=== PATIENT | female | born 1990 | race African-American/Black ===

== ENCOUNTER 2016-06-04 07:27 | Emergency (ER) | payer OTHER ==
[2016-06-04] MEDS ORDERED: ACETAMINOPHEN 325 MG TAB As Ordered ONE (08:12)
[2016-06-04] MEDS ORDERED: ONDANSETRON 4 MG ORAL DISINTEGRATING TAB (S0181) As Ordered ONE (08:12)
[2016-06-04 08:41] LABS: CONTROL LINE MONO INT CTR LINE PRESENT
--- NOTE | 2016-06-04 09:12 | EDDOCDS ---
Nurse's Notes [facility] Name: Aretha Rosas Age: 26 yrs Sex: Female : 1990 Arrival Date: 06/04/2016 Time: 07:27 Bed I3 / M3 Private MD: Diagnosis: Influenza due to identified novel influenza A virus with gastrointestinal manifestations Presentation: 06/04 07:33 Presenting complaint: Patient states: Vomiting, chills, sore throat for 3-4 days ck1 Patient reports she is on Amoxicillin for a "throat infection" but is unable to tolerate. States "I keep throwing it up". Adult Sepsis Screening: The patient does not have new or worsening altered mentation. Patient's respiratory rate is less than 22. Systolic blood pressure is greater than 100. Patient has a qSOFA score of 0- Negative Sepsis Screen. Suicide/Homicide risk assessment- the patient denies having any suicidal and/or homicidal ideations and does not present with any other emotional, behavioral or mental health complaints. Status: The patient is a dependent. Transition of care: patient was not received from another setting of care. 07:33 Acuity: ERICA Level 4 ck1 07:33 Method Of Arrival: Walkin/Carried/Asstd ck1 Triage Assessment: 07:38 General: Appears in no apparent distress, comfortable, Behavior is appropriate for age, ck1 cooperative. Pain: Location: throat Pain currently is 10 out of 10 on a pain scale. HIV screening NA for this visit Offered previously. Respiratory: Respiratory effort is even, unlabored, Respiratory pattern is regular, symmetrical. Derm: Skin is pink, warm & dry. 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 Amoxicillin Unknown Oral every 12 hours 2. Advil Oral PRN (Last dose: 06/03/2016 23:00) - PMHx: Asthma; - PSHx: none; - Social history: Smoking status: Patient uses tobacco products, heavy tobacco smoker. No barriers to communication noted, The patient speaks fluent Palestinian, Speaks appropriately for age. - Family history: Not pertinent. - : The pt / caregiver states he / she is not on anticoagulants. Home medication list is obtained from the patient. - Exposure Risk Screening:: None identified. Screenin:24 Screening information is obtained from the patient. Primary language is Palestinian. Fall dls risk: No risks identified. Assistance ADL's: requires no assistance with activities of daily living. Abuse/DV Screen: The patient / caregiver reports he/she is: not in a situation that causes fear, pain or injury. Nutritional screening: No deficits noted. Advance Directives: Currently, there is no health care proxy. There is no active DNR order. There is no living will. There is no Power of Merchandise Director. Advance directive information has not previously been placed in an [facility] medical record. home support is adequate. Assessment: 08:24 General: Appears slender, uncomfortable, Behavior is cooperative. Awake, alert, dls oriented. Skin warm and dry. Moves all extremities. Bilateral breath sounds clear. Respirations unlabored. Abdomen soft, non-tender. No apparent distress. The patient / caregiver is instructed regarding the plan of care and ED course. Vital Signs: 07:34 BP 128 / 82; Pulse 139; Resp 18; Temp 101.8(O); Pulse Ox 98% on R/A; Weight 69.85 kg ck1 (R); Height 5 ft. 2 in. (157.48 cm) (R); Pain 10/10; 09:08 BP 115 / 76; Pulse 122; Resp 20; Temp 101.7(O); Pulse Ox 97% on R/A; Pain 5/10; jml1 07:34 Body Mass Index 28.17 (69.85 kg, 157.48 cm) ck1 Vitals: 07:34 Log In Time: June 04, 2016 at 07:24. ck1 08:23 Strep Screen is obtained and tested: Negative, a GATSNEG culture is ordered in [facility] dls and sent. ED Course: 07:28 Patient visited by Kaila Puckett. mm15 07:28 Patient moved to Waiting mm15 07:34 Triage Initiated ck1 07:38 Patient moved to I3 / M3 ck1 07:55 Jeremias Ann PA-C is PHCP. cc10 07:55 Linh Layton MD is Attending Physician. cc10 07:59 Patient visited by Jeremias Ann PA-C. cc10 07:59 Patient visited by Jeremias Ann PA-C. cc10 08:14 Monoscreen Sent. jml1 08:16 Patient name changed from Tacara\\S\\\\S\\Ralph\\S\\ to Tacara\\S\\Meshawn\\S\\Ralph. EDMS 08:19 [facility] Payment Agreement was scanned into [employer] and attached to record. gb 08:22 -Influenza A&B Rapid Antigen - Nose Sent. dls 08:24 Accompanied by Significant Other, Patient has correct armband on for positive dls identification. Bed in low position. Call light in reach. 09:08 Patient visited by David Pedro. jml1 09:11 No IV's were initiated during this patient's visit. No procedures done that require dls assistance. Administered Medications: 08:22 Drug: Ondansetron ODT 4 mg [ondansetron 4 mg disintegrating tablet (1 tabs)] Route: PO; dls 09:09 Follow up: Response: Nausea is decreased dls 08:34 Drug: Acetaminophen 975 mg [acetaminophen 325 mg tablet (3 tabs)] Route: PO; dls 09:09 Follow up: Response: No Adverse Reaction dls Order Results: Lab Order: Monoscreen; SPEC'M 06/04/16 08:10 Test: MONO SCRN; Value: NEGATIVE; Range: NEGATIVE; Status: F Lab Order: -Influenza A&B Rapid Antigen - Nose; SPEC'M 06/04/16 08:13 Test: INFLUENZA A RAPID SCR by ICA; Value: INFLUENZA A RESULTS POSITIVE; Abnormal: Abnormal; Status: F Test: INFLUENZA A RAPID SCR by ICA; Value: Comments:; Status: F Test: INFLUENZA B RAPID SCR by ICA; Value: INFLUENZA B RESULTS NEGATIVE; Status: F Test Note: ; The Influenza test is a direct rapid immunoassay for the qualitative detection of Influenza viral antigen. Cell culture (Viral Culture) testing should be considered to confirm NEGATIVE results and to assist in detecting other viruses that can provide similar clinical symptoms. Please contact the lab within 24 hours ([phone]) if confirmatory testing is desired. Outcome: 08:57 Discharge ordered by Provider. cc10 09:10 The following High Risk Discharge criteria are identified: None. Discharged to home dls ambulatory, with significant other. Condition: stable. Discharge instructions given to patient, Instructed on discharge instructions, follow up and referral plans. medication usage, Demonstrated understanding of instructions, medications, Pt was receptive of discharge instructions/ teaching. No special radiology studies were completed. 09:11 Discharge Assessment: Patient awake, alert and oriented x 3. No cognitive and/or dls functional deficits noted. Patient verbalized understanding of disposition instructions. patient administered narcotics - no. The following High Risk Discharge criteria are identified: None. Discharged to home ambulatory. Property sent home with patient. 09:12 Patient left the ED. dls Signatures: Dispatcher [employer] EDMichaela Salcido RN RN dls Sarah Lopez, Reg Reg Carmelita Valle RN RN ck1 David Pedro jml1 Kaila Puckett mm15 Jeremias Ann, PA-C PA-C cc10 Corrections: (The following items were deleted from the chart) 07:38 07:33 Presenting complaint: Patient states: Vomiting, chills, sore throat for 3-4 days ck1 ck1 MTDD
--- NOTE | 2016-06-04 09:12 | EDDOCDS ---
Physician Documentation [facility] Name: Aretha Rosas Age: 26 yrs Sex: Female : 1990 Arrival Date: 06/04/2016 Time: 07:27 Bed I3 / M3 Private MD: Disposition: 06/04/16 08:57 Discharged to Home/Self Care. Impression: Influenza due to identified novel influenza A virus with gastrointestinal manifestations. - Condition is Stable. - Discharge Instructions: Influenza, Adult. - Prescriptions for Ibuprofen 800 mg Oral Tablet - take 1 tablet by ORAL route every 8 hours As needed take with food; 30 tablet. ZOFRAN ODT 4 mg - dissolve 1 tablet by ORAL route 4 times per day As needed do not chew, do not swallow whole; 10 tablet. - Medication Reconciliation, Work Release Form - 3 day, Local Pharmacy Hours form. - Follow up: Private Physician; When: Call to arrange an appointment; Reason: Wound/Symptom Recheck, Recheck today's complaints, Worsening of conditions, Continuance of care. - Problem is an ongoing problem. - Symptoms have improved. - Notes: Do not go to work until you have no fever for 24 hours. Historical: - Allergies: No known drug Allergies; - Home Meds: 1. Amoxicillin Unknown Oral every 12 hours 2. Advil Oral PRN (Last dose: 06/03/2016 23:00) - PMHx: Asthma; - PSHx: none; - Social history: Smoking status: Patient uses tobacco products, heavy tobacco smoker. No barriers to communication noted, The patient speaks fluent Thai, Speaks appropriately for age. - Family history: Not pertinent. - : The pt / caregiver states he / she is not on anticoagulants. Home medication list is obtained from the patient. - Exposure Risk Screening:: None identified. 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 2 in. (157.48 cm) (R); Pain 10/10; 09:08 BP 115 / 76; Pulse 122; Resp 20; Temp 101.7(O); Pulse Ox 97% on R/A; Pain 5/10; jml1 07:34 Body Mass Index 28.17 (69.85 kg, 157.48 cm) ck1 MDM: 08:05 Obtain sample by nasopharyngeal swab ordered. cc10 08:05 Strep Screen, Nursing ordered. cc10 08:05 Ondansetron ODT Oral Disintegrating Tablet 4 mg PO once ordered. cc10 08:05 Acetaminophen Tablet 975 mg PO once ordered. cc10 08:05 -Influenza A&B Rapid Antigen - Nose Ordered. EDMS 08:06 Monoscreen Ordered. EDMS 08:11 Financial registration complete. gb 08:19 [facility] Payment Agreement was scanned into [employer] and attached to record. gb 08:24 GATS (NEGATIVE STREP SCREEN) Ordered. EDMS Administered Medications: 08:22 Drug: Ondansetron ODT 4 mg [ondansetron 4 mg disintegrating tablet (1 tabs)] Route: PO; dls 09:09 Follow up: Response: Nausea is decreased dls 08:34 Drug: Acetaminophen 975 mg [acetaminophen 325 mg tablet (3 tabs)] Route: PO; dls 09:09 Follow up: Response: No Adverse Reaction dls Signatures: Dispatcher [employer] EDMS Michaela Bright, HIMA RN dls Sarah Lopez, Reg Reg gb Carmelita Valle,RN RN ck1 Jeremias Ann, CRISTOFER PAAman cc10 The chart was reviewed and I authenticate all verbal orders and agree with the evaluation and treatment provided.Attachments: 08:19 [facility] Payment Agreement gb MTDD
--- NOTE | 2016-06-06 10:13 | EDDOCDS ---
Physician Documentation [facility] Name: Aretha Rosas Age: 26 yrs Sex: Female : 1990 Arrival Date: 06/04/2016 Time: 07:27 Bed I3 / M3 Private MD: Disposition: 06/04/16 08:57 Discharged to Home/Self Care. Impression: Influenza due to identified novel influenza A virus with gastrointestinal manifestations. - Condition is Stable. - Discharge Instructions: Influenza, Adult. - Prescriptions for Ibuprofen 800 mg Oral Tablet - take 1 tablet by ORAL route every 8 hours As needed take with food; 30 tablet. ZOFRAN ODT 4 mg - dissolve 1 tablet by ORAL route 4 times per day As needed do not chew, do not swallow whole; 10 tablet. - Medication Reconciliation, Work Release Form - 3 day, Local Pharmacy Hours form. - Follow up: Private Physician; When: Call to arrange an appointment; Reason: Wound/Symptom Recheck, Recheck today's complaints, Worsening of conditions, Continuance of care. - Problem is an ongoing problem. - Symptoms have improved. - Notes: Do not go to work until you have no fever for 24 hours. Historical: - Allergies: No known drug Allergies; - Home Meds: 1. Amoxicillin Unknown Oral every 12 hours 2. Advil Oral PRN (Last dose: 06/03/2016 23:00) - PMHx: Asthma; - PSHx: none; - Social history: Smoking status: Patient uses tobacco products, heavy tobacco smoker. No barriers to communication noted, The patient speaks fluent Maltese, Speaks appropriately for age. - Family history: Not pertinent. - : The pt / caregiver states he / she is not on anticoagulants. Home medication list is obtained from the patient. - Exposure Risk Screening:: None identified. 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 2 in. (157.48 cm) (R); Pain 10/10; 09:08 BP 115 / 76; Pulse 122; Resp 20; Temp 101.7(O); Pulse Ox 97% on R/A; Pain 5/10; jml1 07:34 Body Mass Index 28.17 (69.85 kg, 157.48 cm) ck1 MDM: 08:05 Obtain sample by nasopharyngeal swab ordered. cc10 08:05 Strep Screen, Nursing ordered. cc10 08:05 Ondansetron ODT Oral Disintegrating Tablet 4 mg PO once ordered. cc10 08:05 Acetaminophen Tablet 975 mg PO once ordered. cc10 08:05 -Influenza A&B Rapid Antigen - Nose Ordered. EDMS 08:06 Monoscreen Ordered. EDMS 08:11 Financial registration complete. gb 08:19 [facility] Payment Agreement was scanned into [employer] and attached to record. gb 08:24 GATS (NEGATIVE STREP SCREEN) Ordered. EDMS 17:07 T-Sheet-- Draft Copy was scanned into [employer] and attached to record. klr Administered Medications: 08:22 Drug: Ondansetron ODT 4 mg [ondansetron 4 mg disintegrating tablet (1 tabs)] Route: PO; dls 09:09 Follow up: Response: Nausea is decreased dls 08:34 Drug: Acetaminophen 975 mg [acetaminophen 325 mg tablet (3 tabs)] Route: PO; dls 09:09 Follow up: Response: No Adverse Reaction dls Signatures: Dispatcher [employer] EDMichaela Salcido RN RN dls Sarah Lopez, Reg Reg Kiesha-Carmelita BowersRN RN ck1 Jeremias Ann, PAMonoC PAAman cc10 Liliya Hogan klleo The chart was reviewed and I authenticate all verbal orders and agree with the evaluation and treatment provided.Attachments: 08:19 [facility] Payment Agreement gb 17:07 T-Sheet-- Draft Copy klr Chart Complete MTDD
--- NOTE | 2016-06-06 10:13 | EDDOCDS ---
Physician Documentation [facility] Name: Aretha Rosas Age: 26 yrs Sex: Female : 1990 Arrival Date: 06/04/2016 Time: 07:27 Bed I3 / M3 Private MD: Disposition: 06/04/16 08:57 Discharged to Home/Self Care. Impression: Influenza due to identified novel influenza A virus with gastrointestinal manifestations. - Condition is Stable. - Discharge Instructions: Influenza, Adult. - Prescriptions for Ibuprofen 800 mg Oral Tablet - take 1 tablet by ORAL route every 8 hours As needed take with food; 30 tablet. ZOFRAN ODT 4 mg - dissolve 1 tablet by ORAL route 4 times per day As needed do not chew, do not swallow whole; 10 tablet. - Medication Reconciliation, Work Release Form - 3 day, Local Pharmacy Hours form. - Follow up: Private Physician; When: Call to arrange an appointment; Reason: Wound/Symptom Recheck, Recheck today's complaints, Worsening of conditions, Continuance of care. - Problem is an ongoing problem. - Symptoms have improved. - Notes: Do not go to work until you have no fever for 24 hours. Historical: - Allergies: No known drug Allergies; - Home Meds: 1. Amoxicillin Unknown Oral every 12 hours 2. Advil Oral PRN (Last dose: 06/03/2016 23:00) - PMHx: Asthma; - PSHx: none; - Social history: Smoking status: Patient uses tobacco products, heavy tobacco smoker. No barriers to communication noted, The patient speaks fluent Serbian, Speaks appropriately for age. - Family history: Not pertinent. - : The pt / caregiver states he / she is not on anticoagulants. Home medication list is obtained from the patient. - Exposure Risk Screening:: None identified. 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 2 in. (157.48 cm) (R); Pain 10/10; 09:08 BP 115 / 76; Pulse 122; Resp 20; Temp 101.7(O); Pulse Ox 97% on R/A; Pain 5/10; jml1 07:34 Body Mass Index 28.17 (69.85 kg, 157.48 cm) ck1 MDM: 08:05 Obtain sample by nasopharyngeal swab ordered. cc10 08:05 Strep Screen, Nursing ordered. cc10 08:05 Ondansetron ODT Oral Disintegrating Tablet 4 mg PO once ordered. cc10 08:05 Acetaminophen Tablet 975 mg PO once ordered. cc10 08:05 -Influenza A&B Rapid Antigen - Nose Ordered. EDMS 08:06 Monoscreen Ordered. EDMS 08:11 Financial registration complete. gb 08:19 [facility] Payment Agreement was scanned into [employer] and attached to record. gb 08:24 GATS (NEGATIVE STREP SCREEN) Ordered. EDMS 17:07 T-Sheet-- Draft Copy was scanned into [employer] and attached to record. klr Administered Medications: 08:22 Drug: Ondansetron ODT 4 mg [ondansetron 4 mg disintegrating tablet (1 tabs)] Route: PO; dls 09:09 Follow up: Response: Nausea is decreased dls 08:34 Drug: Acetaminophen 975 mg [acetaminophen 325 mg tablet (3 tabs)] Route: PO; dls 09:09 Follow up: Response: No Adverse Reaction dls Signatures: Dispatcher [employer] EDMichaela Salcido RN RN dls Sarah Lopez, Reg Reg Kiesha-Carmelita BowersRN RN ck1 Jeremias Ann, PAMonoC PAAman cc10 Liliya Hogan klleo The chart was reviewed and I authenticate all verbal orders and agree with the evaluation and treatment provided.Attachments: 08:19 [facility] Payment Agreement gb 17:07 T-Sheet-- Draft Copy klr Chart Complete MTDD
--- NOTE | 2016-06-06 10:13 | EDDOCDS ---
Nurse's Notes [facility] Name: Aretha Rosas Age: 26 yrs Sex: Female : 1990 Arrival Date: 06/04/2016 Time: 07:27 Bed I3 / M3 Private MD: Diagnosis: Influenza due to identified novel influenza A virus with gastrointestinal manifestations Presentation: 06/04 07:33 Presenting complaint: Patient states: Vomiting, chills, sore throat for 3-4 days ck1 Patient reports she is on Amoxicillin for a "throat infection" but is unable to tolerate. States "I keep throwing it up". Adult Sepsis Screening: The patient does not have new or worsening altered mentation. Patient's respiratory rate is less than 22. Systolic blood pressure is greater than 100. Patient has a qSOFA score of 0- Negative Sepsis Screen. Suicide/Homicide risk assessment- the patient denies having any suicidal and/or homicidal ideations and does not present with any other emotional, behavioral or mental health complaints. Status: The patient is a dependent. Transition of care: patient was not received from another setting of care. 07:33 Acuity: ERICA Level 4 ck1 07:33 Method Of Arrival: Walkin/Carried/Asstd ck1 Triage Assessment: 07:38 General: Appears in no apparent distress, comfortable, Behavior is appropriate for age, ck1 cooperative. Pain: Location: throat Pain currently is 10 out of 10 on a pain scale. HIV screening NA for this visit Offered previously. Respiratory: Respiratory effort is even, unlabored, Respiratory pattern is regular, symmetrical. Derm: Skin is pink, warm & dry. 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 Amoxicillin Unknown Oral every 12 hours 2. Advil Oral PRN (Last dose: 06/03/2016 23:00) - PMHx: Asthma; - PSHx: none; - Social history: Smoking status: Patient uses tobacco products, heavy tobacco smoker. No barriers to communication noted, The patient speaks fluent Kazakh, Speaks appropriately for age. - Family history: Not pertinent. - : The pt / caregiver states he / she is not on anticoagulants. Home medication list is obtained from the patient. - Exposure Risk Screening:: None identified. Screenin:24 Screening information is obtained from the patient. Primary language is Kazakh. Fall dls risk: No risks identified. Assistance ADL's: requires no assistance with activities of daily living. Abuse/DV Screen: The patient / caregiver reports he/she is: not in a situation that causes fear, pain or injury. Nutritional screening: No deficits noted. Advance Directives: Currently, there is no health care proxy. There is no active DNR order. There is no living will. There is no Power of Commission Agent [employer]. Advance directive information has not previously been placed in an [facility] medical record. home support is adequate. Assessment: 08:24 General: Appears slender, uncomfortable, Behavior is cooperative. Awake, alert, dls oriented. Skin warm and dry. Moves all extremities. Bilateral breath sounds clear. Respirations unlabored. Abdomen soft, non-tender. No apparent distress. The patient / caregiver is instructed regarding the plan of care and ED course. Vital Signs: 07:34 BP 128 / 82; Pulse 139; Resp 18; Temp 101.8(O); Pulse Ox 98% on R/A; Weight 69.85 kg ck1 (R); Height 5 ft. 2 in. (157.48 cm) (R); Pain 10/10; 09:08 BP 115 / 76; Pulse 122; Resp 20; Temp 101.7(O); Pulse Ox 97% on R/A; Pain 5/10; jml1 07:34 Body Mass Index 28.17 (69.85 kg, 157.48 cm) ck1 Vitals: 07:34 Log In Time: June 04, 2016 at 07:24. ck1 08:23 Strep Screen is obtained and tested: Negative, a GATSNEG culture is ordered in [facility] dls and sent. ED Course: 07:28 Patient visited by Kaila Puckett. mm15 07:28 Patient moved to Waiting mm15 07:34 Triage Initiated ck1 07:38 Patient moved to I3 / M3 ck1 07:55 Jeremias Ann PA-C is PHCP. cc10 07:55 Linh Layton MD is Attending Physician. cc10 07:59 Patient visited by Jeremias Ann PA-C. cc10 07:59 Patient visited by Jeremias Ann PA-C. cc10 08:14 Monoscreen Sent. jml1 08:16 Patient name changed from Tacara\\S\\\\S\\Ralph\\S\\ to Tacara\\S\\Meshawn\\S\\Ralph. EDMS 08:19 [facility] Payment Agreement was scanned into [employer] and attached to record. gb 08:22 -Influenza A&B Rapid Antigen - Nose Sent. dls 08:24 Accompanied by Significant Other, Patient has correct armband on for positive dls identification. Bed in low position. Call light in reach. 09:08 Patient visited by David Pedro. jml1 09:11 No IV's were initiated during this patient's visit. No procedures done that require dls assistance. 17:07 T-Sheet-- Draft Copy was scanned into [employer] and attached to record. klr Administered Medications: 08:22 Drug: Ondansetron ODT 4 mg [ondansetron 4 mg disintegrating tablet (1 tabs)] Route: PO; dls 09:09 Follow up: Response: Nausea is decreased dls 08:34 Drug: Acetaminophen 975 mg [acetaminophen 325 mg tablet (3 tabs)] Route: PO; dls 09:09 Follow up: Response: No Adverse Reaction dls Order Results: Lab Order: Monoscreen; SPEC'M 06/04/16 08:10 Test: MONO SCRN; Value: NEGATIVE; Range: NEGATIVE; Status: F Lab Order: -Influenza A&B Rapid Antigen - Nose; SPEC'M 06/04/16 08:13 Test: INFLUENZA A RAPID SCR by ICA; Value: INFLUENZA A RESULTS POSITIVE; Abnormal: Abnormal; Status: F Test: INFLUENZA A RAPID SCR by ICA; Value: Comments:; Status: F Test: INFLUENZA B RAPID SCR by ICA; Value: INFLUENZA B RESULTS NEGATIVE; Status: F Test Note: ; The Influenza test is a direct rapid immunoassay for the qualitative detection of Influenza viral antigen. Cell culture (Viral Culture) testing should be considered to confirm NEGATIVE results and to assist in detecting other viruses that can provide similar clinical symptoms. Please contact the lab within 24 hours ([phone]) if confirmatory testing is desired. Lab Order: GATS (NEGATIVE STREP SCREEN); SPEC'M 06/04/16 08:10 Test: GATS CULTURE (NEG STREP SCR); Value: GATS RESULT NEGATIVE FOR STREP PYOGENES (GROUP A); Status: F Test: GATS CULTURE (NEG STREP SCR); Value: <EXTERNAL COMMENT eCWMed> FULL REPORT IN LAB NOTES (eCW and Medent).; Status: F Outcome: 08:57 Discharge ordered by Provider. cc10 09:10 The following High Risk Discharge criteria are identified: None. Discharged to home dls ambulatory, with significant other. Condition: stable. Discharge instructions given to patient, Instructed on discharge instructions, follow up and referral plans. medication usage, Demonstrated understanding of instructions, medications, Pt was receptive of discharge instructions/ teaching. No special radiology studies were completed. 09:11 Discharge Assessment: Patient awake, alert and oriented x 3. No cognitive and/or dls functional deficits noted. Patient verbalized understanding of disposition instructions. patient administered narcotics - no. The following High Risk Discharge criteria are identified: None. Discharged to home ambulatory. Property sent home with patient. 09:12 Patient left the ED. dls Signatures: Dispatcher [employer] EDMS Michaela Bright RN RN dls Sarah Lopez, Reg Reg Carmelita Valle RN RN ck1 David Pedro jml1 Kaila Puckett mm15 Jeremias Ann PA-Christie PA-Christie cc10 Liliya Hogan Corrections: (The following items were deleted from the chart) 07:38 07:33 Presenting complaint: Patient states: Vomiting, chills, sore throat for 3-4 days ck1 ck1 Chart Complete MTDD
== END 2016-06-04 09:12 | disposition home or self-care (01) ==
LOC: M ED 07:27
DX: J11.1 Influenza due to unidentified influenza virus with other respiratory manifestations (principal); J45.909 Unspecified asthma, uncomplicated; F17.210 Nicotine dependence, cigarettes, uncomplicated

== ENCOUNTER → 2016-06-26 | Emergency (ER) | payer OTHER ==
[~2016-06-26] VITALS: Ht 160 cm; Wt 72.6 kg
[~2016-06-26] MED LIST: AUGM875T27 PO; CLAR1TAB2 PO; IBUP80TA; MUCI600T34 PO; NAPR500T PO; NO HOME MEDS
[2016-06-26 10:43] VITALS: BP 111/74
== END | disposition left against medical advice (07) ==
LOC: M ED 15:44
DX: R51 Headache (principal); Z53.21 Procedure and treatment not carried out due to patient leaving prior to being seen by health care provider

== ENCOUNTER 2016-06-30 09:47 | Emergency (ER) | payer OTHER ==
[~2016-06-30] VITALS: Ht 160 cm; Wt 72.6 kg
[2016-06-30 09:47] VITALS: BP 117/82
[~2016-06-30 09:47] MED LIST changes: -AUGM875T27 PO; -CLAR1TAB2 PO; -IBUP80TA; -MUCI600T34 PO; -NAPR500T PO
[2016-06-30] MEDS ORDERED: IBUP80TA (10:08)
[2016-06-30] MEDS ORDERED: NAPR500T PO (10:37)
[2016-06-30] MEDS ORDERED: MUCI600T34 PO (10:37)
[2016-06-30] MEDS ORDERED: AUGM875T27 PO (10:37)
[2016-06-30] MEDS ORDERED: CLAR1TAB2 PO (10:37)
[2016-06-30] MEDS ORDERED: NAPROXEN 250 MG TAB PO ONE (10:45)
[2016-06-30] MEDS ORDERED: METOCLOPRAMIDE 10 MG TAB PO ONE (10:45)
[2016-06-30] MEDS ORDERED: AUGMENTIN 875 MG TAB PO ONE (10:45)
== END 2016-06-30 10:53 | disposition home or self-care (01) ==
LOC: M ED 10:31
DX: R51 Headache (principal); J01.90 Acute sinusitis, unspecified; Z87.891 Personal history of nicotine dependence; Z79.1 Long term (current) use of non-steroidal anti-inflammatories (NSAID); Z88.8 Allergy status to other drugs, medicaments and biological substances

== ENCOUNTER 2016-10-26 17:49 | Emergency (ER) | payer OTHER ==
[~2016-10-26] VITALS: Ht 160 cm; Wt 81.2 kg
[~2016-10-26 17:49] MED LIST changes: +AUGM875T28 PO; +CLAR1TAB2 PO; +IBUP80TA; +MUCI600T37 PO; +NAPR500T PO
[2016-10-26 17:50] VITALS: BP 132/88
[2016-10-26] MEDS ORDERED: IBUPROFEN 600 MG TAB PO ONE (18:30)
[2016-10-26] MEDS ORDERED: IBUP-1022 PO (18:33)
== END 2016-10-26 18:43 | disposition home or self-care (01) ==
LOC: M ED 17:49
DX: M77.9 Enthesopathy, unspecified (principal); J45.909 Unspecified asthma, uncomplicated; F17.200 Nicotine dependence, unspecified, uncomplicated; Z88.8 Allergy status to other drugs, medicaments and biological substances

== ENCOUNTER 2017-01-12 20:31 | Emergency (ER) | payer OTHER ==
[~2017-01-12] VITALS: Ht 162.6 cm; Wt 77.3 kg
[2017-01-12 20:31] VITALS: BP 123/82
[~2017-01-12 20:31] MED LIST changes: +IBUP-1022 PO
== END 2017-01-12 22:58 | disposition left against medical advice (07) ==
LOC: M ED 20:31
DX: J06.9 Acute upper respiratory infection, unspecified (principal); J45.909 Unspecified asthma, uncomplicated; F17.210 Nicotine dependence, cigarettes, uncomplicated; Z88.8 Allergy status to other drugs, medicaments and biological substances

== ENCOUNTER → 2017-01-15 | Outpatient (REF) | payer OTHER | LOC: M SFHCLERA 12:39 | PROVIDERS: ATTEND Nurse Practitioner Family | DX: R31.9 Hematuria, unspecified (principal) ==

== ENCOUNTER 2017-03-29 08:39 | Emergency (ER) | payer OTHER ==
[~2017-03-29] VITALS: Ht 157.5 cm; Wt 81.5 kg
[2017-03-29] MEDS ORDERED: ALBUTEROL SULFATE 2.5 MG/0.5 ML INH NEB SOLN NEB ONE ×2 (09:30→10:45)
[2017-03-29] MEDS ORDERED: predniSONE 20 MG TAB PO ONE (09:30)
--- NOTE | 2017-03-29 10:10 | REP ---
Chest PA and lateral: 03/29/2017. Clinical history: Dyspnea and cough. Two views are provided. There are no prior studies. Findings: The lung mac are well inflated. I do not see dense consolidation, pleural effusion, lateral pleural thickening or apical scarring. There are cuffed bronchi in the perihilar regions on the lateral view. There is some patchy density overlying the posterior lower thoracic vertebral bodies on the lateral projection that may reflect some medial basal segment atelectasis or infiltrate. No dense consolidation with air bronchograms. Heart, mediastinal and hilar contours normal. Airway shows very minimal subglottic narrowing of the cervical trachea. Bones intact. No free air. Impression: 1. Perihilar changes of bronchitis or reactive airway disease. Some slight increased density on the lateral view over the posterior lower thoracic vertebral bodies which may reflect some superimposed subsegmental atelectasis or patchy infiltrate. No dense consolidation or air bronchograms. No effusion. Signed by Yohannes Pepe MD 03/29/2017 07:32 P
[2017-03-29] MEDS ORDERED: ZITHTAB PO (10:48)
[2017-03-29] MEDS ORDERED: PROAAER10 INH (10:48)
[2017-03-29] MEDS ORDERED: PRED20TA PO (10:48)
[2017-03-29 10:59] VITALS: BP 128/78
== END 2017-03-29 11:00 | disposition home or self-care (01) ==
LOC: M ED 08:39
DX: J45.901 Unspecified asthma with (acute) exacerbation (principal); J20.9 Acute bronchitis, unspecified; Z88.8 Allergy status to other drugs, medicaments and biological substances; Z82.5 Family history of asthma and other chronic lower respiratory diseases

== ENCOUNTER 2017-08-09 19:05 | Emergency (ER) | payer OTHER ==
[2017-08-09 19:53] LABS: KETONE, URINE AUTO RFX NEGATIVE (NEGATIVE); LEUKOCYTE ESTERASE UR AUTO RFX NEGATIVE (NEGATIVE); MUCUS, URINE RFX SMALL (NEGATIVE); NITRITE, URINE AUTO RFX NEGATIVE (NEGATIVE); RBC, URINE AUTO RFX 0 /HPF (0-3); SPECIFIC GRAVITY UR AUTO RFX 1.009 (1.002-1.035); SQUAM EPITHELIAL CELL UR AURFX 1 /HPF (0-6); WBC, URINE AUTO RFX 0 /HPF (0-3)
[2017-08-09 20:36] LABS: CONTROL LINE UCG INT CTR LINE PRESENT; URINE PREG TEST NEGATIVE (NEGATIVE)
== END 2017-08-09 20:54 | disposition left against medical advice (07) ==
LOC: M ED 20:54
DX: R10.9 Unspecified abdominal pain (principal); Z88.8 Allergy status to other drugs, medicaments and biological substances
CPT/HCPCS: 84703

== ENCOUNTER 2017-08-10 09:22 | Emergency (ER) | payer OTHER ==
[2017-08-10 10:14] LABS: KETONE, URINE AUTO RFX NEGATIVE (NEGATIVE); LEUKOCYTE ESTERASE UR AUTO RFX NEGATIVE (NEGATIVE); NITRITE, URINE AUTO RFX NEGATIVE (NEGATIVE); RBC, URINE AUTO RFX 1 /HPF (0-3); SPECIFIC GRAVITY UR AUTO RFX 1.002 (1.002-1.035); SQUAM EPITHELIAL CELL UR AURFX 1 /HPF (0-6); WBC, URINE AUTO RFX 0 /HPF (0-3)
[2017-08-10 10:17] LABS: CONTROL LINE UCG INT CTR LINE PRESENT; URINE PREG TEST NEGATIVE (NEGATIVE)
[2017-08-10 10:24] LABS: BASO % 0.3 % (0.0-1.0); EOS # 0.1 10^3/uL (0.0-0.50); HEMATOCRIT 38.6 % (36.0-47.0); HEMOGLOBIN 12.4 g/dl (12.0-15.5); IMMATURE GRANULOCYTE % 0.3 % (0-3.0); LYMPH # 2.7 10^3/uL (1.5-6.5); LYMPH % 26.5 % (24.0-44.0); MEAN CORPUSCULAR HEMOGLOBIN 28.8 pg (27.0-33.0); MEAN CORPUSCULAR HGB CONC 32.1 g/dl (32.0-36.5); MEAN CORPUSCULAR VOLUME 89.6 fl (80.0-96.0); MONO # 0.8 10^3/uL (0.0-0.8); MONO % 7.5 % (0.0-5.0); NEUTROPHILS # 6.6 10^3/uL (1.8-7.7); NEUTROPHILS % 64.4 % (36.0-66.0); PLATELET COUNT, AUTOMATED 377 10^3/uL (150-450); RED BLOOD COUNT 4.31 10^6/uL (4.00-5.40); RED CELL DISTRIBUTION WIDTH 13.3 % (11.5-14.5); WHITE BLOOD COUNT 10.2 10^3/uL (4.0-10.0)
[2017-08-10 10:48] LABS: ALBUMIN 3.8 GM/DL (3.2-5.2); ALBUMIN/GLOBULIN RATIO 0.95 (1.00-1.93); ALKALINE PHOSPHATASE 81 U/L (45-117); ALT/SGPT 24 U/L (12-78); ANION GAP 7 MEQ/L (8-16); AST/SGOT 18 U/L (7-37); BILIRUBIN,DIRECT < 0.1 MG/DL (0.0-0.2); BILIRUBIN,TOTAL 0.2 MG/DL (0.2-1.0); BLOOD UREA NITROGEN 7 MG/DL (7-18); CALCIUM LEVEL 8.9 MG/DL (8.5-10.1); CARBON DIOXIDE LEVEL 24 MEQ/L (21-32); CHLORIDE LEVEL 110 MEQ/L (98-107); CREATININE FOR GFR 0.68 MG/DL (0.55-1.30); GLOMERULAR FILTRATION RATE > 60.0 (>60); GLUCOSE, FASTING 103 MG/DL (70-100); LIPASE 141 U/L (73-393); POTASSIUM SERUM 3.9 MEQ/L (3.5-5.1); SODIUM LEVEL 141 MEQ/L (136-145); TOTAL PROTEIN 7.8 GM/DL (6.4-8.2)
[2017-08-10] MEDS: metroNIDAZOLE (FLAGYL) 500 MG TAB PO (11:05)
[2017-08-10 11:37] LABS: CHLAMYDIA DNA AMPLIFICATION NEGATIVE (NEGATIVE); GC DNA AMPLIFICATION NEGATIVE (NEGATIVE)
== END 2017-08-10 11:10 | disposition home or self-care (01) ==
LOC: M ED 09:22
DX: N76.0 Acute vaginitis (principal); J45.909 Unspecified asthma, uncomplicated; Z87.891 Personal history of nicotine dependence; Z88.8 Allergy status to other drugs, medicaments and biological substances
CPT/HCPCS: 83690